=== PATIENT | male | born 1995 | race African-American/Black ===

== ENCOUNTER 2017-07-30 21:15 | Emergency (ER) | payer SELFPAY ==
[~2017-07-30] VITALS: Ht 188 cm; Wt 60.0 kg
[2017-07-30 21:18] VITALS: TEMP 36.4; Ht 188 cm; Wt 60.0 kg
[2017-07-30 21:43] VITALS: O2SAT 99
[2017-07-30 22:02] LABS: POINT OF CARE TROPONIN I < 0.030 ng/ml (0-0.045)
[2017-07-30 22:12] VITALS: O2SAT 100
--- NOTE | 2017-07-30 22:13 | DIAGNOSTIC IMAGING REPORT ---
CHEST ONE VIEW PORTABLE CLINICAL HISTORY: Chest pain. COMPARISON STUDY: No previous studies for comparison. FINDINGS: Lung volumes are normal. There is no pneumothorax or pleural effusion. Pulmonary vascularity is normal. Cardiomediastinal silhouette is normal. There is no evidence of pneumomediastinum. IMPRESSION: No acute cardiopulmonary findings. Electronically signed by: Zain Avila M.D. 07/30/2017 10:12 PM Dictated Date/Time: 07/30/2017 10:10 PM
[2017-07-30 22:14] LABS: HEMATOCRIT 41.1 % (42-52); MEAN CELL VOLUME 89.7 fL (80-100); MEAN CORPUSCULAR HEMOGLOBIN 30.8 pg (25-34); MEAN CORPUSCULAR HGB CONC 34.3 g/dl (32-36); PLATELET COUNT 196 K/uL (130-400); RED BLOOD COUNT 4.58 M/uL (4.7-6.1); WHITE BLOOD COUNT 5.93 K/uL (4.8-10.8)
[2017-07-30 22:35] LABS: BUN/CREATININE RATIO 15.2 (10-20); CALCIUM 9.6 mg/dl (8.5-10.1); CREATININE 1.02 mg/dl (0.60-1.40); POTASSIUM 3.6 mmol/L (3.5-5.1)
[2017-07-30 23:18] LABS: BASO % 0.5 %; BASO ABS # 0.03 K/uL (0-0.2); COMPLETE YES; EOS % 1.2 %; LYMPH % 58.5 %; LYMPH ABS # 3.47 K/uL (1.2-3.4); MONO % 5.9 %; NEUT % 33.9 %
[2017-07-31 00:05] VITALS: PULSE 78
--- NOTE | 2017-07-31 00:22 | EMERGENCY ROOM VISIT NOTE ---
History First contact with patient: 21:30 Chief Complaint: CHEST PAIN Stated Complaint: ANGINA OR HEART ATTACK History of Present Illness The patient is a 22 year old male who presents to the Emergency Room with complaints of chest pain for the past few hours that radiates up to his neck and both arms that is described as discomfort, was 5 out of 10 now is minimal. Nothing makes it better or worse. The symptoms were not exertional. Patient's father is a internal medicine doctor back home in [facility]. EKG last week that was normal. He has similar episode last week. Patient quit smoking a few weeks ago. Patient's maternal grandmother had heart disease in her 70s. No other family members per patient. No history DVT or PE in the family. Patient has traveled recently. Patient denies dyspnea, leg pain or swelling, abdominal pain, fevers, cold symptoms, back pain, diaphoresis, hemoptysis, cough, congestion, nausea, vomiting. Review of Systems See HPI for pertinent positives & negatives. A total of 10 systems reviewed and were otherwise negative. Past Medical/Surgical History none Social History Smoking Status: Former Smoker Alcohol Use: none Drug Use: none Occupation Status: [employer] student Current/Historical Medications No Active Prescriptions or Reported Meds Physical Exam Vital Signs Date Time Temp Pulse Resp B/P (MAP) Pulse Ox O2 Delivery O2 Flow Rate FiO2 07/31/17 00:00 123/76 07/30/17 23:48 69 18 07/30/17 23:30 104/67 07/30/17 23:18 96 27 07/30/17 23:13 109/71 07/30/17 23:00 67 15 07/30/17 22:12 73 18 115/78 100 Room Air 07/30/17 21:43 99 Room Air 07/30/17 21:43 99 Room Air 07/30/17 21:43 98 07/30/17 21:18 36.4 97 18 123/79 99 Room Air Physical Exam VITALS: Vitals are noted on the nurse's note and reviewed by myself. Vital signs stable. GENERAL: Pleasant anxious-appearing male, in no acute distress, nondiaphoretic, well-developed well-nourished. SKIN: The skin was without rashes, erythema, edema, or bruising. There is no tenting of the skin. Capillary reflex less than 2 seconds. HEAD: Normocephalic atraumatic. EARS: External auditory canals clear, tympanic membranes pearly reaves without erythema or effusion bilaterally. EYES: Pupils equal round and reactive to light and accommodation. Conjunctivae without injection, sclerae without icterus. Extraocular movements intact. NOSE: Patent, turbinates without inflammation or discharge. MOUTH: Mucous membranes moist. Pharynx without erythema or exudate. Uvula midline. Airway patent. Tongue does not deviate. NECK: Supple without nuchal rigidity. No lymphadenopathy. No thyromegaly. Cervical spine is nontender. No JVD. HEART: Regular rate and rhythm without murmurs gallops or rubs. Chest nontender to palpation LUNGS: Clear to auscultation bilaterally without wheezes, rales or rhonchi. No dullness to percussion. No retractions or accessory muscle use. ABDOMEN: Positive bowel sounds x 4. Normal tympanic percussion. Soft, nontender, without masses or organomegaly. Clarke sign negative. No guarding or rebound tenderness. MUSCULOSKELETAL: No muscle atrophy, erythema, or edema noted. NEURO: Patient was alert and oriented to person place and time. Normal sensation to light and sharp touch. No focal neurological deficits. Medical Decision & Procedures Laboratory Results 07/30/17 21:30 Red Blood Count 4.58, Mean Corpuscular Volume 89.7, Mean Corpuscular Hemoglobin 30.8, Mean Corpuscular Hemoglobin Concent 34.3, Mean Platelet Volume 11.0, Neutrophils (%) (Auto) 33.9, Lymphocytes (%) (Auto) 58.5, Monocytes (%) (Auto) 5.9, Eosinophils (%) (Auto) 1.2, Basophils (%) (Auto) 0.5, Neutrophils # (Auto) 2.01, Lymphocytes # (Auto) 3.47, Monocytes # (Auto) 0.35, Eosinophils # (Auto) 0.07, Basophils # (Auto) 0.03 07/30/17 21:30 Test 07/30/17 21:30 07/30/17 21:43 07/30/17 23:48 White Blood Count 5.93 K/uL (4.8-10.8) Red Blood Count 4.58 M/uL (4.7-6.1) Hemoglobin 14.1 g/dL (14.0-18.0) Hematocrit 41.1 % (42-52) Mean Corpuscular Volume 89.7 fL (80-100) Mean Corpuscular Hemoglobin 30.8 pg (25-34) Mean Corpuscular Hemoglobin Concent 34.3 g/dl (32-36) Platelet Count 196 K/uL (130-400) Mean Platelet Volume 11.0 fL (7.4-10.4) Neutrophils (%) (Auto) 33.9 % Lymphocytes (%) (Auto) 58.5 % Monocytes (%) (Auto) 5.9 % Eosinophils (%) (Auto) 1.2 % Basophils (%) (Auto) 0.5 % Neutrophils # (Auto) 2.01 K/uL (1.4-6.5) Lymphocytes # (Auto) 3.47 K/uL (1.2-3.4) Monocytes # (Auto) 0.35 K/uL (0.11-0.59) Eosinophils # (Auto) 0.07 K/uL (0-0.5) Basophils # (Auto) 0.03 K/uL (0-0.2) RDW Standard Deviation 40.4 fL (36.4-46.3) RDW Coefficient of Variation 12.4 % (11.5-14.5) Immature Granulocyte % (Auto) 0.0 % Immature Granulocyte # (Auto) 0.00 K/uL (0.00-0.02) Anion Gap 10.0 mmol/L (3-11) Est Creatinine Clear Calc Drug Dose 95.6 ml/min Estimated GFR () 119.5 Estimated GFR (Non- 103.1 BUN/Creatinine Ratio 15.2 (10-20) Calcium Level 9.6 mg/dl (8.5-10.1) Total Bilirubin 0.4 mg/dl (0.2-1) Direct Bilirubin 0.2 mg/dl (0-0.2) Aspartate Amino Transf (AST/SGOT) 11 U/L (15-37) Alanine Aminotransferase (ALT/SGPT) 14 U/L (12-78) Alkaline Phosphatase 77 U/L (45-117) Total Protein 7.4 gm/dl (6.4-8.2) Albumin 4.5 gm/dl (3.4-5.0) Lipase 166 U/L (73-393) Bedside D-Dimer 90 ng/mlFEU (0-450) Bedside Troponin I < 0.030 ng/ml (0-0.045) ED Course Prior records/ancillary studies reviewed. Triage Nursing notes reviewed. Additional history obtained from friends and father. The patient's history was concerning for chest pain. Differential diagnosis: Etiologies such as cardiac ischemia, aortic dissection, pulmonary embolism, pneumonia, pneumothorax, musculoskeletal, infections, pericarditis, myocarditis , esophageal rupture, gastrointestinal, as well as others were entertained. Physical examination: As above. ER treatment provided: Patient was observed On reassessment the patient felt better. Diagnostic interpretation by me: The electrocardiogram was negative for pathologic change. Normal sinus, normal intervals, no acute ST-T wave changes. Impression normal sinus rhythm interpreted by myself The labs revealed 2 troponins that are negative there were greater than 2 hours apart. Negative d-dimer Imaging studies: Chest x-ray as above CHEST ONE VIEW PORTABLE CLINICAL HISTORY: Chest pain. COMPARISON STUDY: No previous studies for comparison. FINDINGS: Lung volumes are normal. There is no pneumothorax or pleural effusion. Pulmonary vascularity is normal. Cardiomediastinal silhouette is normal. There is no evidence of pneumomediastinum. IMPRESSION: No acute cardiopulmonary findings. Electronically signed by: Zain Avila M.D. Per the patient's request, I did speak to the patient's father who is an internal medicine doctor and all questions are answered. I reviewed all results with him. Father seemed pleased with the treatment plan. Exam and history seem consistent with noncardiac chest pain. Patient had a similar episode last week. Patient had unremarkable workup. Normal EKG. 2 troponins are negative there were greater than 2 hours apart. Negative d- dimer. PERC score low. Patient was advised to follow-up with health services in a few days or here in the ER sooner for chest pain, difficulty breathing, worsening signs or symptoms or as needed. Patient had no prior history of hypertension, cholesterol, diabetes or drug use. By the evaluation outlined above emergent etiologies such as cardiac ischemia, aortic dissection, pulmonary embolism, pneumonia, pneumothorax, infections, pericarditis, myocarditis, gastrointestinal, as well as others were deemed relatively unlikely. The pt informed about the findings as listed above. All questions were answered and pleased with the treatment. Return instructions were outlined and the patient was discharged in stable condition. Case reviewed with my attending Referral: The patient was referred back to health services and/or primary care physician for follow-up in 2 to 3 days for a recheck of the current condition. Medical Decision As above Medication Reconcilliation Current Medication List: was personally reviewed by me Blood Pressure Screening Patient's blood pressure: Normal blood pressure Impression Primary Impression: Non-cardiac chest pain Departure Information Dispostion Home / Self-Care Condition GOOD Prescriptions No Active Prescriptions or Reported Meds Referrals No Doctor, Assigned (PCP) Forms HOME CARE DOCUMENTATION FORM, IMPORTANT VISIT INFORMATION Patient Instructions My [facility] Additional Instructions Ibuprofen(Motrin, Advil) may be used for fever or pain. Use 600mg every six hours as needed. Take with food. Avoid using more than 2400mg in a 24 hour period. Do not use 2400mg per day for more than three consecutive days without physician direction. Prolonged inappropriate use can lead to stomach upset or ulcers. (AND/OR) Acetaminophen(Tylenol) may be used for fever or pain. Use 1000mg every six hours as needed. Avoid using more than 3000mg in a 24 hour period. Rest and drink plenty of fluids as tolerated. Continue current medications. Avoid strenuous activities and anything that worsens your pain. Resume normal activities once your symptoms resolve. Return to the ER immediately for worsening or persistent chest pain, abdominal pain, vomiting, fevers, chest pains, difficulty breathing, worsening of your condition, or as needed. Follow up with your primary physician in 2-3 days for a recheck of your current condition.
[2017-07-31 00:30] VITALS: BP 116/70
== END 2017-07-31 00:37 | disposition home or self-care (01) ==
LOC: C.EDB 21:17 → C.EDA 07-31 00:37
DX: R07.9 Chest pain, unspecified (principal); Z87.891 Personal history of nicotine dependence